=== PATIENT | female | born 1975 | race Caucasian/White ===

== ENCOUNTER → 2017-06-04 | Outpatient (CLI) | payer BC ==
[~2017-06-04] MED LIST: ATENOLOL25 MG PO; AZITHROMYCIN250 M1 PO; BACTRIM DS 8001 TAB PO; CARAFATE 11 GM/10 ML PO; CELEXA20 MG PO; DUONEB 3 MG/3 ML3 ML IH; HYDROCODONE/APA1 TA8 PO; IBU-200200 MG PO; IRON90 MG PO; LEVOTHYROXIN0.125 M1 PO; LISINOPRIL 5MG T5 MG PO; NORCO 325 MG-101 TAB PO; NORFLEX100 MG PO; PRILOSEC OTC20 MG PO; RELPAX40 MG; TESSALON PERLE200 MG PO; TOPAMAX100 MG PO; VITAMIN B121 TA1 PO; ZOFRAN ODT4 MG PO
--- NOTE | 2017-06-08 08:27 | RADIOLOGY REPORT PS360 ---
DIG MAMM-DX UNI-RT W/CAD COMPARISON: 11/06/2016 and 11/17/2016 INDICATION: Follow-up abnormal mammogram ORDERING PHYSICIAN: Ion Hancock MD PATIENT AGE: 42 years TECHNIQUE: Standard images performed along Spot compression mag views FINDINGS: Average fibroglandular tissue. Scattered calcifications are once again noted in the right breast in the retroareolar region and in the upper outer aspect of the right breast. Multiple clusters are present and appear stable compared to the previous exam which was a baseline study.. Some of these cannot do appear to track layer head as milk of calcium. No new area of calcification evident. No malignant appearing mass. IMPRESSION: Stable right-sided breast calcifications. Would continue to follow-up in 6 months with mag views to confirm one-year stability BI-RADS CATEGORY: 3_Probably Benign-Short Term F/U RECOMMENDED FOLLOWUP: Bilateral mammogram in October 2017 with mag views of the right breast (A letter has been sent to the patient regarding results of the study.)
--- NOTE | 2017-06-08 08:27 | RADIOLOGY REPORT PS360 ---
DIG MAMM-DX UNI-RT W/CAD COMPARISON: 11/06/2016 and 11/17/2016 INDICATION: Follow-up abnormal mammogram ORDERING PHYSICIAN: Ion Hancock MD PATIENT AGE: 42 years TECHNIQUE: Standard images performed along Spot compression mag views FINDINGS: Average fibroglandular tissue. Scattered calcifications are once again noted in the right breast in the retroareolar region and in the upper outer aspect of the right breast. Multiple clusters are present and appear stable compared to the previous exam which was a baseline study.. Some of these cannot do appear to bricklayer as milk of calcium. No new area of calcification evident. No malignant appearing mass. IMPRESSION: Stable right-sided breast calcifications. Would continue to follow-up in 6 months with mag views to confirm one-year stability BI-RADS CATEGORY: 3_Probably Benign-Short Term F/U RECOMMENDED FOLLOWUP: Bilateral mammogram in October 2017 with mag views of the right breast (A letter has been sent to the patient regarding results of the study.)
== END ==
LOC: RAD 12:48
DX: R92.2 Inconclusive mammogram (principal)
CPT/HCPCS: G0206-RT

== ENCOUNTER 2017-07-26 09:56 | Emergency (ER) | payer BC ==
[~2017-07-26] VITALS: Ht 167.6 cm; Wt 108.9 kg
--- NOTE | 2017-07-26 10:21 | Emergency Room Report ---
History of Present Illness Time Seen by [email or web address] Presenting Problem in Triage Pt arrived:Walked Presenting Problem:PASSED OUT AND FELL AFTER OBSERVING DTR RETURN FROM PROCEDURE (HAVING TONSILS OUT); HIT HER HEAD ON WAY DOWN TO FLOOR. PT IS COMPLAINING OF A HEADACHE Onset of symptoms date/time:/ or onset unknown for:MEDICAL HX UNKNOWN Treatment Prior to Arrival: [employer] Provided by: Sepsis Risk Assessment: Temp: 98.3 B/P: 115/72 MAP: 86 Pulse: 82 Resp: 18 Recent fever? N Clinical Suspician of Infection? N Mental Status: 1 - Regular (Normal Baseline) Sepsis Risk:Low Sepsis Risk Have you (or family members/close friends) recently traveled outside the [place]? N If Yes, where/when: Have you had exposure to infectious disease within the past month? TB? Other? Specify: Patient states she was watching procedure with her daughter and that there was some blood and that the patient got lightheaded and passed out and fell and hit her head she complains of a moderate posterior headache aching or radiation she complains of some neck soreness she complains of some RIGHT elbow pain and some posterior chest pain on the RIGHT side where she fell. Pt she states she still feels a little lightheaded now has some nausea. ALLERGIES Coded Allergies: Influenza Virus Vaccines (Mild, 07/26/17) Iodamide Meglumine (07/26/17) Iodinated Contrast- Oral and IV Dye (Iodinated Contrast Media - IV Dye) () iodine (07/26/17) Home Medications Active Scripts HYDROCODONE/ACETAMINOPHEN ([place] 10-325 Tablet) 1 TAB PO Q4HP PRN pain. #20 TAB Prov: 02/07/15 Orphenadrine Citrate (Norflex) 100 MG PO BIDP PRN pain. #20 TER Prov: 02/07/15 SULFAMETHOXAZOLE/TRIMETHOPRIM (Sulfamethoxazole-Tmp Ds Tablet) 1 TAB PO BID #20 TAB Prov: 02/07/15 HYDROCODONE/ACETAMINOPHEN (LORTAB 5-325 (generic)) 1 TAB PO Q6HP PRN PAIN #20 TAB Prov: 02/04/17 Ondansetron (Zofran 4MG Odt) 4 MG PO Q6HP PRN NAUSEA AND VOMITING #6 ODT Prov: 02/04/17 Reported Medications Atenolol (Atenolol) 25 MG PO QHS MISCELLANEOUS (UNKNOWN MEDICATION) 1 TAB PO LUNCH Levothyroxine Sodium 0.125 MG PO DAILY #90 LISINOPRIL (Lisinopril) 5 MG PO DAILY IRON (Iron) 65 MG PO History Medical History General CAD? No Angina: Yes [place]: No Hypertension? Yes Hyperlipidemia? No CHF? No DVT? No PE? No COPD? No Asthma? No Anemia? Yes GERD? No Gastric ulcers? No GI Bleed? No Hernia? No Thyroid Problems? Yes Hypothyroidism? Yes CVA? No Seizures? No Diabetes? No Renal Insuffiency? No End Stage Renal Disease? No UTI? No Stones? No BPH? No GB Disease: No Nephritic Syndrome? No Asplenia? No Hepatitis? No Sickle Cell Disease? No Arthritis? No Migraines? No Cataracts? No Glaucoma? No MRSA? No HIV? No TB? No Anxiety? No Depression? No Cancer? No More? No Immunization Hx Ped.Immunizations UTD Yes DT/Tetanus 2010 Surgical Hx Previous Surgery?Y Tonsils THYROID BARIATIC SLEEVE GALLBLADDER ERP ENGINEER Hx LMP N/A Family History Family Hx Hypertension Yes Hyperlipidemia Yes Cancer Yes Social History Smoking Hx Smoker: Former Smoker Tobacco: Yes Type Cigarettes Packs/day < 1 Pack Alcohol Alcohol: Yes Review of Systems All Other Systems Reviewed and Negative Physical Exam Vital Signs Vital Signs Date Time Temp Pulse Resp B/P Pulse O2 O2 Flow FiO2 Ox Delivery Rate 07/26 1224 98.3 82 18 108/64 99 07/26 1001 98.3 82 18 115/72 99 General Appearance: Nontoxic Head: Normocephalic, without obvious abnormality, atraumatic. Eyes: conjunctiva/corneas clear ENT: Mucous membranes moist. Neck: No jugular venous distention. Cardiac: regular rate and rhythm Lungs: Clear to auscultation bilaterally Abdomen: Nontender, Nondistended, positive bowel sounds, no rebound : No CVA tenderness Extremities: no edema Musculoskeletal: No chest wall tenderness C-spine minimal tender Thoracic spine nontender Lumbar spine nontender Chest wall nontender except some posterior chest wall tenderness in the scapular area on the RIGHT Arms nontender x some RIGHT elbow tenderness Legs nontender Pelvis stable AP lateral compression Skin: No rashes or lesions to exposed skin. Neurologic: Alert. Alert and oriented x3 Cranial nerves intact Strength 5 out of 5 Sensation intact to light touch Psychiatric: Normal affect (Roberto Carlos Mccall MD) General Appearance normal appearance Respiratory Status No: respiratory distress. Cardiovascular normal exam Neurologic alert Medical Decision Making LABS/Meds/Orders Pt receiving controlled substance in ED? No Comment CT head read as no acute disease by radiologist CT C-spine no fracture noted per radiologist RIGHT elbow read by myself I don't note any definitive fracture X-ray read by myself I don't note any acute disease Results/Orders Current Medication Orders Sig/Nuria Start time Last Medication Dose Route Stop Time Status Admin Ondansetron HCl 0 .STK-MED ONE 07/26 1110 DC .ROUTE Ondansetron HCl 4 MG ONCE ONE 07/26 1030 DC 07/26 PO 07/26 1031 1110 Orders Procedure Date/time Status DIET-NOTHING BY MOUTH 07/26 L Active STABILIZE JOINT 07/26 1233 Active ELBOW-RT-3 VIEWS 07/[address] HEAD REQ 07/[address] SCAN REQ 07/26 1009 Complete CHEST(2 VIEWS-NOT PORTABLE) 07/26 1009 Active Departure Departure Time of Disposition 1230 Disposition DC Home or Self Care(routine) Clinical Impression Primary Impression: Vasovagal episode Secondary Impressions: Elbow contusion Qualifiers: Encounter type: initial encounter Laterality: right Qualified Code: S50.01XA - Contusion of right elbow, initial encounter Head contusion Qualifiers: Encounter type: initial encounter Contusion of head detail: unspecified part of head Qualified Code: S00.93XA - Contusion of unspecified part of head, initial encounter Condition STABLE Referrals Paulino Ross MD Patient Instructions DI for Syncope in Adults (Fainting), How to Use a Sling Additional Instructions sling for comfort for 48 hours. follow up with orthopedics if elbow pain not improving. return if worse Discharge Counseling Counseled pt/family regarding diagnosis, test results, R/B of controlled subst., home care, follow up needs ED Critical Care Critical Care No at 1234
--- NOTE | 2017-07-26 10:50 | RADIOLOGY REPORT PS360 ---
CT HEAD W/O CONTRAST HISTORY: Headache/pain following head injury/contusion FELL ORDERING PHYSICIAN: Roberto Carlos Mccall MD PATIENT AGE: 42 years COMPARISON: 12/22/2010 TECHNIQUE: Axial images obtained without contrast. Brain and bone windows reviewed. FINDINGS: No midline shift, mass effect, intracranial hemorrhage, hydrocephalus, or extra-axial fluid collection is evident. There is a rounded hyperdense nodule along the anterior roof of the third ventricle at the region of the foramen of [place] consistent with a colloid cyst measuring 8 x 8 mm previously measuring 7 x 7 mm. No hydrocephalus. No acute intracranial hemorrhage. The calvarium has an unremarkable appearance. No mastoid effusion. The visualized paranasal sinuses are unremarkable. IMPRESSION: 1. No acute intracranial findings. 2. 8 mm colloid cyst very slightly larger compared to 12/22/2010. No evidence of hydrocephalus
--- NOTE | 2017-07-26 10:53 | RADIOLOGY REPORT PS360 ---
CT CERVICAL SPINE W/O CONT INDICATION: Neck pain following injury FELL ORDERING PHYSICIAN: Roberto Carlos Mccall MD PATIENT AGE: 42 years COMPARISON: None TECHNIQUE: Axial images are obtained without contrast. Sagittal and coronal reformatted images are reviewed as well. FINDINGS: There is normal alignment.. No fracture or dislocation. Minimal anterior hypertrophic changes are present at C6-7. No bony canal stenosis. The right lobe of the thyroid gland is slightly enlarged with mild tracheal shift toward the left. The left lobe is not readily apparent. Has the patient had prior thyroidectomy on the left?. The lung apices are clear with some small blebs IMPRESSION: 1. No acute fracture. 2. Nonacute findings as described above
[2017-07-26 12:42] VITALS: BP 108/64
--- NOTE | 2017-07-26 14:27 | RADIOLOGY REPORT PS360 ---
CHEST(2 VIEWS-NOT PORTABLE) HISTORY: Chest pain following injury FALL ORDERING PHYSICIAN: Roberto Carlos Mccall MD PATIENT AGE: 42 years COMPARISON: 09/01/2015 FINDINGS: The cardiomediastinal silhouette and pulmonary vascularity are within normal limits. No lobar consolidation or collapse is evident. There are chronic changes in the left lung base felt to be related to prominent pericardial fat pad. Nodular opacity once again noted in the right CP angle unchanged this measures approximately 11 mm unchanged. The remaining lungs are clear. No acute bony anomalies. IMPRESSION: No change with no acute finding
--- NOTE | 2017-07-26 14:27 | RADIOLOGY REPORT PS360 ---
ELBOW-RT-3 VIEWS HISTORY: Pain following injury fall elbow contusion ORDERING PHYSICIAN: Roberto Carlos Mccall MD PATIENT AGE: 42 years COMPARISON: None FINDINGS: BONY STRUCTURES: No fracture or dislocation. No lytic or blastic change. Normal mineralization. SOFT TISSUES: Unremarkable. No radio opaque foreign bodies. No displaced fat pad. JOINT SPACE: Well-preserved. No significant arthritic changes evident. IMPRESSION: Negative elbow.
== END 2017-07-26 12:42 | disposition home or self-care (01) ==
LOC: ER 09:56
DX: R55 Syncope and collapse (principal); S50.01XA Contusion of right elbow, initial encounter; S00.93XA Contusion of unspecified part of head, initial encounter